=== PATIENT | male | born 1990 | race Hispanic/Latino ===

== ENCOUNTER 2019-04-16 12:15 | Emergency (ER) | payer OTHER, SELFPAY ==
--- NOTE | 2019-04-16 12:57 | RAD ---
PA AND LATERAL VIEWS CHEST: HISTORY: Chest pain. FINDINGS: The cardiomediastinum is normal. The lungs are expanded and clear. The bony thorax is normal. IMPRESSION: Normal exam. POS: [facility]
== END 2019-04-16 13:16 | disposition home or self-care (01) ==
LOC: SCSER 12:15
DX: R09.1 Pleurisy (principal)
CPT/HCPCS: 71046; 93005

== ENCOUNTER 2025-11-15 12:57 | Emergency (ER) | payer SELFPAY | END 2025-11-15 14:48 | disposition home or self-care (01) | LOC: ERS 12:57 | DX: R05.9 Cough, unspecified (principal) | CPT/HCPCS: 71045; 99283 ==